=== PATIENT | female | born 1970 | race Caucasian/White ===

== ENCOUNTER 2018-01-15 12:25 | Emergency (ER) | payer BC ==
[~2018-01-15] VITALS: Ht 160 cm; Wt 58.1 kg
[2018-01-15 12:41] LABS: HEMATOCRIT 40.2 % (37.0-47.0); HEMOGLOBIN 13.5 gm/dL (12.0-15.0); MCH 30.7 pg (26.0-34.0); MCHC 33.6 g/dL (28.0-37.0); MCV 91.4 fL (80.0-100.0); RBC 4.4 mil/uL (4.20-5.00); RDW 14.9 % (10.5-14.5); WBC 8.4 thou/uL (4.0-11.0)
[2018-01-15 12:50] LABS: CALCIUM 9.4 mg/dL (8.5-10.1); CREATININE 0.9 mg/dL (0.6-1.0); POTASSIUM 3.6 mmol/L (3.5-5.1)
[2018-01-15 12:56] LABS: ALBUMIN 4.2 g/dL (3.4-5.0); TOTAL BILIRUBIN 0.7 mg/dL (<0.1-1.0); TOTAL PROTEIN 7.6 g/dL (6.4-8.2)
[2018-01-15 15:22] VITALS: BP 102/50
== END 2018-01-15 15:24 | disposition short-term general hospital (02) ==
LOC: ER 12:25
PROVIDERS: Nurse Practitioner Family
DX: I60.9 Nontraumatic subarachnoid hemorrhage, unspecified (principal); R11.2 Nausea with vomiting, unspecified; F17.210 Nicotine dependence, cigarettes, uncomplicated; Z88.5 Allergy status to narcotic agent